=== PATIENT | male | born 1965 | race African-American/Black ===

== ENCOUNTER 2020-05-25 06:34 | Emergency (ER) | payer MEDICAID, OTHER ==
[~2020-05-25] VITALS: Ht 182.9 cm; Wt 93.0 kg
--- NOTE | 2020-05-25 06:49 | NUR ---
PT CAME INTO ED TODAY FOR FOOT PAIN ON THE RIGHT SIDE AFTER GOING TO THE [employer] AND ON RIDES WITH HIS GRANDAUGHTERS YESTERDAY. PT DENIES TRAUMA, CMS INTACT, DENIES LOSS OF FEELING OR SENSATION, PULSES 2+. PT RESTING IN GURNEY, APPEARS COMFORTABLE, NAD, VSS. PT PLACED ON SPO2/BP MONITORING. WCTM. WAITING FOR MD GENAO.
[2020-05-25] MEDS ORDERED: METF750T42 PO (06:53)
[2020-05-25] MEDS ORDERED: LISI-170 PO (06:53)
--- NOTE | 2020-05-25 06:54 | NUR ---
BEDSIDE REPORT TO ALONSO HARDY. PT CARE TRANSFERRED AT THIS TIME.
[2020-05-25] MEDS ORDERED: IBUPROFEN 800 MG TABLET ONE (07:14)
[2020-05-25] MEDS ORDERED: IBUPROFEN 800 MG TABLET PO ONE (07:30)
[2020-05-25 09:27] VITALS: BP 137/98
== END 2020-05-25 09:30 | disposition home or self-care (01) ==
LOC: ED 08:44
DX: M25.571 Pain in right ankle and joints of right foot (principal); M79.89 Other specified soft tissue disorders; E78.5 Hyperlipidemia, unspecified; I10 Essential (primary) hypertension; E11.9 Type 2 diabetes mellitus without complications
CPT/HCPCS: 99283